=== PATIENT | female | born 1940 | race Caucasian/White ===

== ENCOUNTER 2016-09-23 14:58 | Observation (INO) | payer MEDICARE ==
[~2016-09-23] VITALS: Ht 165.1 cm; Wt 102.7 kg
[~2016-09-23 14:58] MED LIST: AMOXICILLIN 50500 MG PO; CHOLESTEROL MED; CYMBALTA60 MG PO; DIOVAN80 MG PO; HYCODAN 1.5 MG-1 TAB PO; SIMVASTATIN20 MG PO; TRAMADOL 50MG T50 MG PO
[2016-09-23 14:59] VITALS: BP 148/79
[2016-09-23 15:14] LABS: LYMPH # 2.4 K/mm3 (0.7-4.5); LYMPH % 45.9 % (10-50.0)
[2016-09-23 15:25] LABS: HEMOGLOBIN 10.3 g/dL (12.2-16.2)
[2016-09-23 15:32] LABS: BUN 27 mg/dL (7-18); GFR (ESTIMATED) 27 ML/MIN (59-)
[2016-09-23] MEDS ORDERED: DONEPEZIL HCL10 MG PO (15:49)
[2016-09-23] MEDS ORDERED: NAMENDA XR28 MG PO (15:50)
[2016-09-23] MEDS ORDERED: VALSARTAN80 MG PO (15:50)
[2016-09-23] MEDS ORDERED: PRAVACHOL20 MG PO (15:50)
[2016-09-23] MEDS ORDERED: CORICIDIN HBP C1 TAB PO (15:51)
--- NOTE | 2016-09-23 15:54 | Emergency Room Report ---
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 N Clinical Suspician of Infection? N Mental Status: 1 - Regular (Normal Baseline) Sepsis Risk:Low Sepsis Risk Have you (or family members/close friends) recently traveled outside the [place]? N If Yes, where/when: Have you had exposure to infectious disease within the past month? TB? Other? Specify: Source patient, RN notes reviewed, family, RN/MD Exam Limitations no limitations Comment This is a 76-year-old lady brought in by ambulance after sustaining a syncopal episode, just half an hour prior to arrival. She is here with her daughter. Patient appears to be a poor historian, as she is suffering from dementia. Per daughter, they both went out to eat at a local restaurant, and, as she was walking back to the car, daughter turned back to look for her mother ( the patient), and couldn't find her. She found her flat on the ground, unresponsive, and immediately called EMS. The patient's daugheter denies any previous similar episodes in the past, denies any recent travel or recent exposure to sick contacts, denies any neurological deficits. Patient is awake, and alert, oriented. ALLERGIES Coded Allergies: No Known Allergies (09/23/16) Home Medications Reported Medications DONEPEZIL HCL (Donepezil HCl) 10 MG PO BID #60 TAB MEMANTINE HCL (Namenda XR) 28 MG PO QHS #30 Pravastatin Sodium (Pravachol) 20 MG PO QHS #30 TAB Valsartan 80 MG PO QHS #30 TAB ACETAMINOPHEN/CHLORPHENIRAMINE (Coricidin Hbp Cold & Flu Tab) 1 TAB PO ONCE CYANOCOBALAMIN (VITAMIN B-12) (Vitamin B-12) 1 TAB PO DAILY OMEGA-3 FATTY ACIDS/FISH OIL (Fish Oil 1,000 MG Capsule) 1,000 MG PO QHS Cholecalciferol (Vitamin D3) (Vitamin D) 50,000 UNIT PO WEEKLY Aspirin (Adult Low Dose Aspirin EC) 81 MG PO DAILY History Medical History General Angina: No CA: No Hypertension? Yes Hyperlipidemia? Yes CHF? No COPD? No Asthma? No Hernia? Yes CVA? No Seizures? No Diabetes? No UTI? No Stones? No GB Disease: No Hepatitis? No Cataracts? No Glaucoma? No MRSA? No TB? No Cancer? No Immunization Hx DT/Tetanus UNKNOWN Surgical Hx Previous Surgery?Y BREAST LUMPECTOMY TOTAL L KNEE Family History Family Hx Diabetes Yes CAD Yes Hypertension Yes Hyperlipidemia Yes Cancer Yes TB No Social History Smoking Hx Smoker: Never Smoker Tobacco: No Type N/A Are you/the child exposed to second-hand smoke: No Alcohol Alcohol: No Review of Systems All Other Systems Reviewed and Negative Psychiatric/Neurological other (syncope) Physical Exam Vital Signs Vital Signs Date Time Temp Pulse Resp B/P Pulse O2 O2 Flow FiO2 Ox Delivery Rate 09/23 1710 80 / 1710 97.0 80 18 148/79 / 1710 98 ROOM AIR 09/23 1702 97.0 80 18 148/79 98 / 1459 97.0 80 18 148/79 98 General Appearance normal appearance, WD/WN, no apparent distress Eye Exam - bilateral eye normal exam, bilateral eye PERRL, bilateral eye EOMI Neck normal inspection, non-tender, supple, full range of motion Respiratory Status Yes: trachea midline, chest symmetrical, non tender chest. No: respiratory distress. Lung Sounds bilateral: normal breath sounds, lungs clear. 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 No Comment 16:12-case d/w Dr Andersen, covering for Dr Dela Cruz, covering for Dr Ku, advised of patient's condition, presentation, physical examination, labs/ electrocardiogram/radiology findings, ED course. Dr. Andersen agreeable with admission, requested an echocardiogram, to hold the ARB, gently hydrate the patient, follow serial cardiac enzymes. Care transferred Dr. Andersen at this time. I will write temporary bridge admit orders, per hospital policy. Upon patient's arrival to the floor, the unit nurse will contact Dr. Hargrove in order to obtain full inpatient admission orders. Results/Orders Laboratory Tests 09/23/16 1445: Phosphorus 4.3, Magnesium 1.6 09/23/16 1445: B-Natriuretic Peptide 32 09/23/16 1445: Sodium 139, Potassium 3.9, Chloride 104, Carbon Dioxide 23, BUN 27 H, Creatinine 1.8 H, Estimated Creat Clear 32 L, Estimated GFR (MDRD) 27 L, Glucose 148 H, Calcium 8.4 L, Total Bilirubin 0.2, AST 32, ALT 28, Alkaline Phosphatase 103, Creatine Kinase 421 H, CK-MB (CK-2) Rel Index 0.5, CK and CKMB Interp 2.2, Troponin I < 0.02, Total Protein 7.1, Albumin 3.0 L, Globulin 4.1 H, Albumin/Globulin Ratio 0.7 L, WBC 5.2, RBC 3.58 L, Hgb 10.3 L, Hct 32.4 L , MCV 90.6, RDW 13.8, Plt Count 219, MPV 6.7 L, Gran % 46.8, Gran # 2.4, Lymphocytes % 45.9, Monocytes % 4.7, Eosinophils % 2.1, Basophils % 0.6, Lymphocytes # 2.4, Monocytes # 0.3, Eosinophils # 0.1, Basophils # 0.0, PUBS MCHC 31.8, MCH 28.8 Current Medication Orders Sig/Jocelyn Start time Last Medication Dose Route Stop Time Status Admin Ceftriaxone Sodium 1 GM DAILY 09/24 0900 AC 09/24 Sodium Chloride 50 ML IV 0835 Donepezil HCl 10 MG QHS 09/23 2100 AC PO Pravastatin Sodium 20 MG QHS 09/23 2100 AC 09/23 PO 2130 Sodium Chloride 1,000 ML .Q4H 09/23 1715 DC 09/23 IV 09/23 2114 1807 Sodium Chloride 1,000 ML .[id number] 09/23 1715 AC 09/24 IV 0838 Sodium Chloride 1,000 ML .[id number] 09/23 1630 CAN IV Sodium Chloride 1,000 ML .[id number] 09/23 1615 DC 09/23 IV 09/23 1715 2131 Sodium Chloride 10 ML PRN PRN 09/23 1615 AC IV 09/24 1612 Ceftriaxone Sodium 1 GM ONCE ONE 09/23 1600 DC 09/23 Sodium Chloride 50 ML IV 09/23 1629 1557 Ceftriaxone Sodium 0 .STK-MED ONE 09/23 1552 DC IV Sodium Chloride 50 ML .STK-MED ONE 09/23 1552 DC IV Sodium Chloride 10 ML PRN PRN 09/23 1515 AC IV 09/24 1505 Orders Procedure Date/time Status CBC WITH AUTO DIFF 09/24 0600 Complete BASIC METABOLIC PROFILE 09/24 0600 Complete CARDIAC ENZYMES 09/24 0030 Complete ARTERIAL CAROTID 09/24 UNK Complete [id number] FAT/LO CHO/JADA 09/23 D Complete CARDIAC ENZYMES 09/23 1800 Complete ECHO ADULT 09/23 1613 Active ORTHOSTATIC B/P 09/23 1612 Active Decision to admit 09/23 1554 Active URINALYSIS/COMPLETE 09/23 1551 Active PHOSPHORUS 09/23 1550 Complete MAGNESIUM 09/23 1550 Complete BRAIN NATRIURETIC PEPTIDE 09/[address] HEAD REQ 09/23 1549 Complete ELECTROCARDIOGRAM REQUEST 09/23 1509 Active KNEE-3 VIEWS-LT 09/23 1506 Active IV SALINE LOCK 09/23 1506 Active CBC WITH AUTO DIFF 09/23 1506 Complete CARDIAC ENZYMES 09/23 1506 Complete CHEM 12 PROFILE 09/23 1506 Complete ADMIT PATIENT 09/23 UNK Active 12 LEAD EKG-ROSAMARIA (INITIAL) 09/23 UNK Active PULSE OXIMETRY REQUEST 09/23 UNK Active VITAL SIGNS 09/23 UNK Active 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 of ischemic chgs, no ectopy, normal QRS, normal CO, no EKG for comparison, non-spec. ST/Twave chgs, ST elevation, ST depression, LBBB, RBBB, ectopy, abnormal Q waves XRAY/CT/US XRAY/CT/US 1 XRAY chest XR interpretation by reviewed by me, discussed w/radiologist Xray Results no infiltrates, normal heart size, normal lung inflation lucy XRAY/CT/US 2 XRAY pelvis-negative left knee-negative XRAY/CT/US [address] interpretation by discussed w/radiologist Time results known: 1616 CT Results normal/NAD, no fracture seen, atrophy, no ICH Departure Departure Time of Disposition 1552 Disposition Still a Patient Clinical Impression Primary Impression: Syncope Qualifiers: Syncope type: unspecified Qualified Code: R55 - Syncope and collapse Secondary Impressions: Acute kidney injury Anemia Qualifiers: Anemia type: unspecified type Qualified Code: D64.9 - Anemia, unspecified Condition STABLE ED Critical Care Critical Care No at 1032
--- NOTE | 2016-09-23 15:54 | Emergency Room Report ---
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 N Clinical Suspician of Infection? N Mental Status: 1 - Regular (Normal Baseline) Sepsis Risk:Low Sepsis Risk Have you (or family members/close friends) recently traveled outside the [place]? N If Yes, where/when: Have you had exposure to infectious disease within the past month? TB? Other? Specify: Source patient, RN notes reviewed, family, RN/MD Exam Limitations no limitations Comment This is a 76-year-old lady brought in by ambulance after sustaining a syncopal episode, just half an hour prior to arrival. She is here with her daughter. Patient appears to be a poor historian, as she is suffering from dementia. Per daughter, they both went out to eat at a local restaurant, and, as she was walking back to the car, daughter turned back to look for her mother ( the patient), and couldn't find her. She found her flat on the ground, unresponsive, and immediately called EMS. The patient's daugheter denies any previous similar episodes in the past, denies any recent travel or recent exposure to sick contacts, denies any neurological deficits. Patient is awake, and alert, oriented. ALLERGIES Coded Allergies: No Known Allergies (09/23/16) Home Medications Reported Medications DONEPEZIL HCL (Donepezil HCl) 10 MG PO BID #60 TAB MEMANTINE HCL (Namenda XR) 28 MG PO QHS #30 Pravastatin Sodium (Pravachol) 20 MG PO QHS #30 TAB Valsartan 80 MG PO QHS #30 TAB ACETAMINOPHEN/CHLORPHENIRAMINE (Coricidin Hbp Cold & Flu Tab) 1 TAB PO ONCE CYANOCOBALAMIN (VITAMIN B-12) (Vitamin B-12) 1 TAB PO DAILY OMEGA-3 FATTY ACIDS/FISH OIL (Fish Oil 1,000 MG Capsule) 1,000 MG PO QHS Cholecalciferol (Vitamin D3) (Vitamin D) 50,000 UNIT PO WEEKLY Aspirin (Adult Low Dose Aspirin EC) 81 MG PO DAILY History Medical History General Angina: No NV: No Hypertension? Yes Hyperlipidemia? Yes CHF? No COPD? No Asthma? No Hernia? Yes CVA? No Seizures? No Diabetes? No UTI? No Stones? No GB Disease: No Hepatitis? No Cataracts? No Glaucoma? No MRSA? No TB? No Cancer? No Immunization Hx DT/Tetanus UNKNOWN Surgical Hx Previous Surgery?Y BREAST LUMPECTOMY TOTAL L KNEE Family History Family Hx Diabetes Yes CAD Yes Hypertension Yes Hyperlipidemia Yes Cancer Yes TB No Social History Smoking Hx Smoker: Never Smoker Tobacco: No Type N/A Are you/the child exposed to second-hand smoke: No Alcohol Alcohol: No Review of Systems All Other Systems Reviewed and Negative Psychiatric/Neurological other (syncope) Physical Exam Vital Signs Vital Signs Date Time Temp Pulse Resp B/P Pulse O2 O2 Flow FiO2 Ox Delivery Rate 09/23 1710 80 / 1710 97.0 80 18 148/79 / 1710 98 ROOM AIR 09/23 1702 97.0 80 18 148/79 98 / 1459 97.0 80 18 148/79 98 General Appearance normal appearance, WD/WN, no apparent distress Eye Exam - bilateral eye normal exam, bilateral eye PERRL, bilateral eye EOMI Neck normal inspection, non-tender, supple, full range of motion Respiratory Status Yes: trachea midline, chest symmetrical, non tender chest. No: respiratory distress. Lung Sounds bilateral: normal breath sounds, lungs clear. 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 No Comment 16:12-case d/w Dr Andersen, covering for Dr Dela Cruz, covering for Dr Ku, advised of patient's condition, presentation, physical examination, labs/ electrocardiogram/radiology findings, ED course. Dr. Andersen agreeable with admission, requested an echocardiogram, to hold the ARB, gently hydrate the patient, follow serial cardiac enzymes. Care transferred Dr. Andersen at this time. I will write temporary bridge admit orders, per hospital policy. Upon patient's arrival to the floor, the unit nurse will contact Dr. Hargrove in order to obtain full inpatient admission orders. Results/Orders Laboratory Tests 09/23/16 1445: Phosphorus 4.3, Magnesium 1.6 09/23/16 1445: B-Natriuretic Peptide 32 09/23/16 1445: Sodium 139, Potassium 3.9, Chloride 104, Carbon Dioxide 23, BUN 27 H, Creatinine 1.8 H, Estimated Creat Clear 32 L, Estimated GFR (MDRD) 27 L, Glucose 148 H, Calcium 8.4 L, Total Bilirubin 0.2, AST 32, ALT 28, Alkaline Phosphatase 103, Creatine Kinase 421 H, CK-MB (CK-2) Rel Index 0.5, CK and CKMB Interp 2.2, Troponin I < 0.02, Total Protein 7.1, Albumin 3.0 L, Globulin 4.1 H, Albumin/Globulin Ratio 0.7 L, WBC 5.2, RBC 3.58 L, Hgb 10.3 L, Hct 32.4 L , MCV 90.6, RDW 13.8, Plt Count 219, MPV 6.7 L, Gran % 46.8, Gran # 2.4, Lymphocytes % 45.9, Monocytes % 4.7, Eosinophils % 2.1, Basophils % 0.6, Lymphocytes # 2.4, Monocytes # 0.3, Eosinophils # 0.1, Basophils # 0.0, PUBS MCHC 31.8, MCH 28.8 Current Medication Orders Sig/Jocelyn Start time Last Medication Dose Route Stop Time Status Admin Ceftriaxone Sodium 1 GM DAILY 09/24 0900 AC 09/24 Sodium Chloride 50 ML IV 0835 Donepezil HCl 10 MG QHS 09/23 2100 AC PO Pravastatin Sodium 20 MG QHS 09/23 2100 AC 09/23 PO 2130 Sodium Chloride 1,000 ML .Q4H 09/23 1715 DC 09/23 IV 09/23 2114 1807 Sodium Chloride 1,000 ML .[id number] 09/23 1715 AC 09/24 IV 0838 Sodium Chloride 1,000 ML .[id number] 09/23 1630 CAN IV Sodium Chloride 1,000 ML .Q1H1M 09/23 1615 DC 09/23 IV 09/23 1715 2131 Sodium Chloride 10 ML PRN PRN 09/23 1615 AC IV 09/24 1612 Ceftriaxone Sodium 1 GM ONCE ONE 09/23 1600 DC 09/23 Sodium Chloride 50 ML IV 09/23 1629 1557 Ceftriaxone Sodium 0 .STK-MED ONE 09/23 1552 DC IV Sodium Chloride 50 ML .STK-MED ONE 09/23 1552 DC IV Sodium Chloride 10 ML PRN PRN 09/23 1515 AC IV 09/24 1505 Orders Procedure Date/time Status CBC WITH AUTO DIFF 09/24 0600 Complete BASIC METABOLIC PROFILE 09/24 0600 Complete CARDIAC ENZYMES 09/24 0030 Complete ARTERIAL CAROTID 09/24 UNK Complete [id number] FAT/LO CHO/JADA 09/23 D Complete CARDIAC ENZYMES 09/23 1800 Complete ECHO ADULT 09/23 1613 Active ORTHOSTATIC B/P 09/23 1612 Active Decision to admit 09/23 1554 Active URINALYSIS/COMPLETE 09/23 1551 Active PHOSPHORUS 09/23 1550 Complete MAGNESIUM 09/23 1550 Complete BRAIN NATRIURETIC PEPTIDE 09/[address] HEAD REQ 09/23 1549 Complete ELECTROCARDIOGRAM REQUEST 09/23 1509 Active KNEE-3 VIEWS-LT 09/23 1506 Active IV SALINE LOCK 09/23 1506 Active CBC WITH AUTO DIFF 09/23 1506 Complete CARDIAC ENZYMES 09/23 1506 Complete CHEM 12 PROFILE 09/23 1506 Complete ADMIT PATIENT 09/23 UNK Active 12 LEAD EKG-ROSAMARIA (INITIAL) 09/23 UNK Active PULSE OXIMETRY REQUEST 09/23 UNK Active VITAL SIGNS 09/23 UNK Active SCHOOL COMMISSIONER 09/23 UNK Active POM NURSE KARLEY HOSE ORDER 09/23 UNK Active CODE STATUS 09/23 UNK Active PATIENT ACTIVITY ORDER 09/23 UNK Active Neuro Status, Assess 09/23 UNK Active CM/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 of ischemic chgs, no ectopy, normal QRS, normal AK, no EKG for comparison, non-spec. ST/Twave chgs, ST elevation, ST depression, LBBB, RBBB, ectopy, abnormal Q waves XRAY/CT/US XRAY/CT/US 1 XRAY chest XR interpretation by reviewed by me, discussed w/radiologist Xray Results no infiltrates, normal heart size, normal lung inflation lucy XRAY/CT/US 2 XRAY pelvis-negative left knee-negative XRAY/CT/US [address] interpretation by discussed w/radiologist Time results known: 1616 CT Results normal/NAD, no fracture seen, atrophy, no ICH Departure Departure Time of Disposition 1552 Disposition Still a Patient Clinical Impression Primary Impression: Syncope Qualifiers: Syncope type: unspecified Qualified Code: R55 - Syncope and collapse Secondary Impressions: Acute kidney injury Anemia Qualifiers: Anemia type: unspecified type Qualified Code: D64.9 - Anemia, unspecified Condition STABLE ED Critical Care Critical Care No at 1032
--- NOTE | 2016-09-23 16:22 | RADIOLOGY REPORT PS360 ---
CT HEAD W/O CONTRAST COMPARISON: None HISTORY: Patient fell, possible loss of consciousness TECHNIQUE: Multiple axial scans obtained from base skull to the vertex and were performed without IV contrast. FINDINGS: There is prominent inflammatory changes of the ethmoid sinuses and is a small amount of fluid in the visualized portions of the maxillary sinuses and there is mucoperiosteal thickening and/or small amount of fluid in the sphenoid sinus. The frontal sinuses somewhat small but clear. The basilar cisterns are prominent. Ventricular system is normal for age. There is no bleed and there are no extra-axial fluid collections. There are mild periventricular hypodensities consistent with chronic ischemia white matter changes. The sylvian fissures and cortical sulci are mildly prominent. There is moderate arteriosclerotic calcification of the vertebral arteries bilaterally. Bony calvarium appears intact. IMPRESSION: 1. Prominent ethmoid sinusitis likely acute and chronic with mild inflammatory changes of the maxillary and sphenoid sinus as well there were 2 findings of age-appropriate cortical atrophy 2. Findings of mild age-appropriate cortical atrophy and mild chronic ischemic white matter changes, no acute intracranial pathology noted
--- NOTE | 2016-09-23 16:30 | PHARMACY CLINIC NOTE ---
Patient Demographics Patient Demographics Admission date: 09/23/16 Date: 09/23/16 Time: 162 Allergies Coded Allergies: No Known Allergies (09/23/16) HEIGHT- FT: 5 IN: 6.00 K.112 VTE General Information Disclaimer The following section includes nursing documentation that has been pulled in for pharmacy review. VTE prophylaxis [id number] VTE prophylaxis ordered? Yes Type of prophylaxis/treatment: KARLEY at 3632
--- NOTE | 2016-09-23 16:45 | RADIOLOGY REPORT PS360 ---
CHEST-PORTABLE Ordering physician: David Arellano MD Age: 76 years Female INDICATION: chest symptomsFELL AT HOME PROCEDURE: CHEST-PORTABLE FINDINGS: PA and lateral chest 03/20/2012 Less optimal inspiration on today's portable study but nothing definitely acute. No pneumothorax. No pleural effusion. There is mild elevation right hemidiaphragm which is similar to previous studies only slightly more pronounced today. Chest wall not optimally viewed but no rib fracture or chest wall abnormality evident Lungs well expanded and clear with nothing definitely acute. . Mild chronic changes Heart normal size. Normal pulmonary vascularity. Hilar and mediastinal structures appear satisfactory. . IMPRESSION ----- Nothing definite acute at chest Elevation right hemidiaphragm.
--- NOTE | 2016-09-23 16:47 | RADIOLOGY REPORT PS360 ---
PELVIS AP ONLY Ordering Physician: David Arellano MD Patient Age: 76 years: Female HISTORY: FELL AT HOMEAP pelvis. TECHNIQUE: AP pelvis radiograph portable FINDINGS Osseous pelvis is intact. No fracture. Hip joint spaces well-maintained. Decreased resolution on this portable exam but no good evidence of acute pelvic fracture. Specifically the sacrum and SI joints osseous pelvis appear intact with suggestion mild demineralization throughout. No previous relevant studies IMPRESSION: Osseous pelvis intact with no fracture evident
[2016-09-23 17:10] VITALS: BP 148/79
[2016-09-23] MEDS ORDERED: VITAMIN B121 TA1 PO (17:49)
[2016-09-23] MEDS ORDERED: FISH OIL1000 MG PO (17:49)
[2016-09-23] MEDS ORDERED: VITAMIN D50000 UNIT PO (17:50)
[2016-09-23 17:53] VITALS: BP 190/82
--- NOTE | 2016-09-23 17:57 | HISTORY AND PHYSICAL REPORT ---
Demographics: Admit date: 09/23/16 Chief complaint: SYNCOPAL EVENT, FALL AT HOME PRIMARY DIAGNOSIS: SYNCOPE Allergies: Coded Allergies: No Known Allergies (09/23/16) History of present illness: History of present illness: 76 yr old female with history of dementia, hyperlipidemia and hypertension presented to the ED after suffering a syncopal event at her home. Daughter is present at time of exam and gives history due to patient's poor recall. Reports they had been out to lunch and returned home, her mother got out of the car and was walking away from the car while daughter was feeding her cat - she called her mother's name and got no response and turned to see her unresponsive in front of the car. After a brief moment, her eyes opened spontaneously, appeared very pale but slowly regained some level of alertness and was awake when EMS arrived. In ED found to have mild elevation of creatinine, mild elevation of CPK and was admitted for observation. On exam she reports left lower leg pain and cramping around her ankle. Typically followed by Dr Cordoba for primary care. Last visit about 3 weeks ago and labs were done for complaint of leg muscle pain/cramping in her thighs. Was started on fish oil and vitamin D replacement at that time. No recent antibiotics. + cough for the past 3 days and had a dose of Coricidin HBP at lunch today, prior to syncopal event. Followed by neurology at [facility] for progressive dementia that started about 3 years ago following the of her . She lives alone but her son lives next door and has good family support. Past medical history: Family HX Diabetes Yes CAD No Hypertension No Hyperlipidemia No Cancer No TB No Immunization HX DT/Tetanus UNKNOWN Pneumonia Never Had TB Test in last year No General CAD? No Angina: No NV: No Hypertension? Yes Hyperlipidemia? Yes CHF? No DVT? No PE? No COPD? No Asthma? No Anemia? Yes GERD? No Gastric ulcers? No GI Bleed? No Hernia? Yes Thyroid Problems? No Hypothyroidism? No CVA? No Seizures? No Diabetes? No Renal Insuffiency? Yes (creatinine 1.5 on most recent) UTI? No Stones? No BPH? No GB Disease: No Nephritic Syndrome? No Asplenia? No Hepatitis? No Sickle Cell Disease? No Arthritis? Yes Migraines? Yes Cataracts? No Glaucoma? No MRSA? No HIV? No TB? No Anxiety? No Depression? Yes Cancer? No More? Yes Additional hx: DIVERTICULITIS DEMENTIA COMPLICATED MIGRAINE Past Surgical HX Previous Surgery?Y LEFT TOTAL KNEE REPLACEMENT BREAST LUMPECTOMY Current home meds: Reported Medications DONEPEZIL HCL (Donepezil HCl) 10 MG PO QHS #60 MEMANTINE HCL (Namenda XR) 28 MG PO QHS #30 Pravastatin Sodium (Pravachol) 20 MG PO QHS #30 Valsartan 80 MG PO QHS #30 Cyanocobalamin (Vitamin B-12) (Vitamin B12) 2,500 MCG PO DAILY OMEGA-3 FATTY ACIDS/FISH OIL (Fish Oil 1,000 MG Capsule) 1,000 MG PO DAILY CHOLECALCIFEROL (VITAMIN D3) (Vitamin D) 1 TAB PO WEEKLY ACETAMINOPHEN/CHLORPHENIRAMINE (Coricidin Hbp Cold & Flu Tab) 1 TAB PO ONCE Social Hx: Smoking HX Tobacco No Type N/A Are you/the child exposed to second-hand smoke: No Alcohol Alcohol: No Hx of Drug Use Drug Use? No Patien't marital status is Patient's support system is excellent Review of systems: Constitutional No: no symptoms reported. Eyes No: no symptoms reported. Ears, Nose, Mouth, Throat nose congestion Respiratory cough. No: shortness of breath. Cardiovascular No chest pain, No edema, syncope Gastrointestinal/Abdominal No no symptoms reported Genitourinary No: no symptoms reported. Musculoskeletal see HPI, joint pain, muscle pain. Skin No: no symptoms reported. Neurological No: headache, tremors, seizure disorder. Psychiatric No: no symptoms reported. Exam: Lab data for last 24 hours: Laboratory Tests 09/23/16 1445: Phosphorus 4.3, Magnesium 1.6 09/23/16 1445: B-Natriuretic Peptide 32 09/23/16 1445: Sodium 139, Potassium 3.9, Chloride 104, Carbon Dioxide 23, BUN 27 H, Creatinine 1.8 H, Estimated Creat Clear 32 L, Estimated GFR (MDRD) 27 L, Glucose 148 H, Calcium 8.4 L, Total Bilirubin 0.2, AST 32, ALT 28, Alkaline Phosphatase 103, Creatine Kinase 421 H, CK-MB (CK-2) Rel Index 0.5, CK and CKMB Interp 2.2, Troponin I < 0.02, Total Protein 7.1, Albumin 3.0 L, Globulin 4.1 H, Albumin/Globulin Ratio 0.7 L, WBC 5.2, RBC 3.58 L, Hgb 10.3 L, Hct 32.4 L , MCV 90.6, RDW 13.8, Plt Count 219, MPV 6.7 L, Gran % 46.8, Gran # 2.4, Lymphocytes % 45.9, Monocytes % 4.7, Eosinophils % 2.1, Basophils % 0.6, Lymphocytes # 2.4, Monocytes # 0.3, Eosinophils # 0.1, Basophils # 0.0, PUBS MCHC 31.8, MCH 28.8 Admission vital signs: 1ST Vital Signs Result Date Time Pulse Ox 98 09/23 1459 B/P 148/79 09/23 1459 Temp 97.0 09/23 1459 Pulse 80 09/23 1459 Resp 18 09/23 1459 O2 Delivery ROOM AIR 09/23 1710 Additional information: Pleasant female, resting in bed, alert and oriented to person. Poor recall. Pupils are 1mm bilat, tongue midline, face symmetric and able to move all extremities. Gait not evaluated. Heart rate is regular on auscultation. Lungs with diffuse rhonchi and some expiratory wheezing. Abdomen obese, soft, NT/ND, BS present. No edema, scar over the left knee, moves all extremities but develops cramping pain in the left foot during exam. Affect is flat. Skin without acute rashes, pale. Plan: Problem List 1. Syncope Assessment/Plan echo and carotid results pending. CT head negative for acute events, does note acute on chronic ethmoid sinusitis. 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 Acute kidney injury Assessment/Plan baseline 1.5 on most recent labs. Hold ARB, gentle hydration and repeat in AM 3. Anemia Assessment/Plan stable compared to outpatient labs 3 weeks ago. B12 was normal at that time. Will obtain iron studies. 4. Acute ethmoidal sinusitis Assessment/Plan continue ceftriaxone initiated in the ED. Obtain blood and sputum cultures 5. Wheezing Assessment/Plan start albuterol nebulizer therapy. No history of smoking, asthma or COPD. Likely related to acute viral process Plan: pantoprazole for GI prophylaxis, KARLEY hose for DVT prophylaxis Assessment/Plan start albuterol nebulizer therapy. No history of smoking, asthma or COPD. Likely related to acute viral process Plan: see above
[2016-09-23 21:16] VITALS: BP 166/77
[2016-09-24] VITALS (8 sets, daily range): BP systolic 145–189; BP diastolic 70–98
[2016-09-24 07:44] LABS: HEMOGLOBIN 9.4 g/dL (12.2-16.2); LYMPH # 2.2 K/mm3 (0.7-4.5); LYMPH % 45.3 % (10-50.0)
--- NOTE | 2016-09-24 08:19 | ACUTE CARE PROGRESS NOTE (QUA) ---
Progress Notes Subjective Date 09/24/16 Time 0814 Note No events overnight. Rested "decent". Leg cramps are better this morning. Continues with congested cough. Alert, oriented to person. Poor recall. Heart with RRR, wheezing and rhonchi bilaterally. Abdomen soft, BS present, NT/ND. No edema, moves all extremities. Patient/family reports: feeling better, cough Nursing reports: no complaints Objective Findings Last VS-Temp:99.0 B/P:153/84 Pulse:77 Resp:20 SaO2:94 ROOM AIR Last weight lbs:226 oz:8 K.740 Method:Bed Scales Reviewed: medications, vital signs, lab results, radiology report Assessment/Plan Problem List 1. Syncope Assessment/Plan: echo and carotid dopplers pending. Would recommend CTA given her new report of arrhythmia and her relatively new chest symptoms. Qualifiers: Syncope type: unspecified Qualified Code: R55 - Syncope and collapse 2. Acute kidney injury 3. Anemia Assessment/Plan: iron studies pending. Recent B12 level normal. Colonoscopy in the past but daughter unsure of date Qualifiers: Anemia type: unspecified type Qualified Code: D64.9 - Anemia, unspecified 4. Acute ethmoidal sinusitis Assessment/Plan: Continue ceftriaxone 5. Wheezing Assessment/Plan: Continue albuterol Patient condition Stable Plan: order additional tests This inpt stay is expected to cross 2 MNs from start of care No at 0818
[2016-09-24] MEDS ORDERED: ADULT LOW DOSE81 MG PO (08:29)
--- NOTE | 2016-09-24 08:38 | RADIOLOGY REPORT PS360 ---
ANKLE-LT-3 VIEWS Ordering Physician: Rei Ku MD Patient Age: 76 years: Female HISTORY: FALL, PAINpain left ankle. Fall TECHNIQUE: 3 views left ankle FINDINGS No fracture nor dislocation. Ankle mortise intact. Only scant if any soft tissue swelling laterally below the tip of lateral malleolus IMPRESSION: No fracture nor dislocation
--- NOTE | 2016-09-24 08:50 | CARDIOVASCULAR REPORT ---
"Cerebrovascular Exam Indications: 780.2 Syncope and collapse. IMPRESSIONS 1. The bilateral vertebral arteries are patent with normal antegrade flow. 2. Study suggests 20-49%(lower end of scale)stenosis involving the right internal carotid artery and the left internal carotid artery. History: Risk factors: Hypertension. Hyperlipidemia. Carotid duplex study. Complete study and Doppler flow study including spectral analysis, color and vegas scale imaging. Height: Height: 165.1cm. Height: 65in. Weight: Weight: 102.5kg. Weight: 225.5lb. Body mass index: BMI: 37.6kg/m^2. Body surface area: BSA: 2.22m^2. Location: Bedside. Patient status: Inpatient. Tables: Arterial flow: + +--------+--------+ |Location |V sys |V ed | + +--------+--------+ |Right CCA - proximal|108cm/s |22cm/s | + +--------+--------+ |Right CCA - distal |120cm/s |28.3cm/s| + +--------+--------+ |Right ECA |152cm/s |--------| + +--------+--------+ |Right ICA - proximal|84.1cm/s|26.7cm/s| + +--------+--------+ |Right ICA - mid |106cm/s |31.4cm/s| + +--------+--------+ |Right ICA - distal |147cm/s |33.8cm/s| + +--------+--------+ |Right vertebral |82.5cm/s|--------| + +--------+--------+ |Left CCA - proximal |97.4cm/s|17.3cm/s| + +--------+--------+ |Left CCA - distal |104cm/s |20.4cm/s| + +--------+--------+ |Left ECA |165cm/s |--------| + +--------+--------+ |Left ICA - proximal |118cm/s |23.6cm/s| + +--------+--------+ |Left ICA - mid |184cm/s |33.4cm/s| + +--------+--------+ |Left ICA - distal |98.2cm/s|22.6cm/s| + +--------+--------+ |Left vertebral |50.1cm/s|--------| + +--------+--------+ Velocity ratios: + + + + + + | |Right, V sys|Right, V ed|Left, V sys|Left, V ed| + + + + + + |Max ICA/dist CCA|1.23 |1.19 |1.77 |1.64 | + + + + + + (Report amended ) Electronically signed by: Angel Meneses [id number]"
--- NOTE | 2016-09-24 10:16 | CARDIOVASCULAR REPORT ---
"Venous Exam Indications: 729.5 Pain in limb. IMPRESSIONS 1. There is no evidence of significant Reflux. 2. No evidence of deep or superficial vein thrombosis involving the right lower extremity 3. No evidence of deep or superficial vein thrombosis involving the left lower extremity History: Risk factors: Hypertension. Complete lower extremity venous duplex evaluation. Doppler flow study including spectral analysis, color and vegas scale imaging. Location: Vascular laboratory. Patient status: Inpatient. Tables: Venous flow and imaging: + +-------+ + |Location |Overall|Flow properties | + +-------+ + |Right common femoral |Patent |Normal phasicity; spontaneous; | | | |normal augmentation; compressible| + +-------+ + |Right saphenofemoral junction|Patent |Compressible | + +-------+ + |Right profunda femoral |Patent |Compressible | + +-------+ + |Right femoral |Patent |Normal phasicity; spontaneous; | | | |normal augmentation; | | | |compressible; no reflux | + +-------+ + |Right greater saphenous |Patent |Normal phasicity; spontaneous; | | | |normal augmentation; compressible| + +-------+ + |Right popliteal |Patent |Normal phasicity; spontaneous; | | | |normal augmentation; compressible| + +-------+ + |Right posterior tibial |Patent |Compressible | + +-------+ + |Right peroneal |Patent |Compressible | + +-------+ + |Right gastrocnemius |Patent |Compressible | + +-------+ + |Right soleal |Patent |Compressible | + +-------+ + |Left common femoral |Patent |Normal phasicity; spontaneous; | | | |normal augmentation; compressible| + +-------+ + |Left saphenofemoral junction |Patent |Compressible | + +-------+ + |Left profunda femoral |Patent |Compressible | + +-------+ + |Left femoral |Patent |Normal phasicity; spontaneous; | | | |normal augmentation; compressible| + +-------+ + |Left greater saphenous |Patent |Normal phasicity; spontaneous; | | | |normal augmentation; compressible| + +-------+ + |Left popliteal |Patent |Normal phasicity; spontaneous; | | | |normal augmentation; compressible| + +-------+ + |Left posterior tibial |Patent |Compressible | + +-------+ + |Left peroneal |Patent |Compressible | + +-------+ + |Left gastrocnemius |Patent |Compressible | + +-------+ + |Left soleal |Patent |Compressible | + +-------+ + (Report amended ) Electronically signed by: Angel Meneses [id number]"
--- NOTE | 2016-09-24 11:08 | RADIOLOGY REPORT PS360 ---
CT CHEST W/O CONTRAST Ordering Physician: Rei Ku MD Patient Age: 76 years: Female HISTORY: SYNCOPE,?pneumoniashort of breath. Recent Leg pain.. TECHNIQUE: Helical CT scanning performed the chest with no IV contrast. Due to renal insufficiency. GFR 27 FINDINGS : LUNGS. mild thickening of central airways most evident at the infrahilar region bilateral, right greater than left... Suspect bronchitis or possibly chronic bronchitis. This is most evident at the medial right base with there is some subtle hazy appearance about the airways. Cannot exclude some extremely subtle early bronchopneumonia but more likely viewing mainly bronchitis and chronic changes. RIGHT Chest: Note focal increased lung density at the medial aspect of posterior right chest, this is seen overlying the very large marginal osteophyte thoracic spine. This impinges upon the lung & resulting in and focal scarring/fibrosis along with atelectasis.. Doubt infiltrate or lesion here given its overall appearance on all 3 projections. Subtle groundglass opacity in character character of lungs seen at the right middle lobe centrally as well as right upper lobe just above the minor fissure. Nonspecific. More likely chronic changes although difficult to exclude a very subtle infiltrate LEFT Chest:. Minimal ground glass opacity is associated with focal area of pleural thickening at the periphery of the lingula more likely reflection of scarring chronic changes. There is also somewhat nodular density at the left CP angle which I favor also due to scarring seen on coronal image 45-44 MEDIASTINUM: mild cardiomegaly. Only a few small scattered nodes in mediastinum. No significant mediastinal nor hilar adenopathy. The slight generous caliber pulmonary artery on right mathew reflect some underlying pulmonary hypertension features but is nonspecific. Osseous. No significant osseous lesions prominent costochondral calcification lower ribs mild degenerative changes T-spine but no compression fracture or lesion. Upper abdomen. Liver: 2.7 cm benign-appearing cyst left lobe. . Adrenals included, & unremarkable. Spleen normal size. Upper normal thickness at distal esophagus IMPRESSION: 1. Mild thickening of airways most evident at infrahilar regions. - Suggestive of bronchitis/Central airway inflammation 2. Would note subtle groundglass opacity RML & RUL. These are minimal nonspecific & more likely chronic changes and/or atelectasis. ( Difficult to totally exclude a subtle inflammatory process, but less likely ) 3. More likely chronic areas of scarring bilaterally also noted: ...Densities at Periphery of lingula just above left hemidiaphragm, -most likely related to pleural & parenchymal scarring. ... Large osteophyte lower right chest w/ associated overlying area lung density, most likely due to to focal scarring & atelectasis.. These latter features may benefit from follow-up 4. Cardiomegaly but no evidence of CHF.
--- NOTE | 2016-09-24 20:10 | RADIOLOGY REPORT PS360 ---
KNEE-3 VIEWS-LT Ordering Physician: David Arellano MD Patient Age: 76 years: Female HISTORY: FELL AT HOMEleft knee pain TECHNIQUE: 3 views portable left knee: including crosstable lateral COMPARISON September 2008 3 view left knee FINDINGS No acute fracture or findings. Left TKA. Components appear to be well-seated in satisfactory position with no fracture or loosening. No acute findings a no prominent change since 2008. Only question slight additional tibial valgus on this portable image Again note the Generous bone cement extending inferiorly from the long tibial peg here at the proximal tibia. Note stable superior marginal osteophyte off the superior margin of patella. Wispy calcification just superior to this I believe reflects some dystrophic calcification near suprapatella bursa/slightly more evident than on 2009.. Most likely dystrophic postsurgical calcification. Difficult to totally exclude some loose body material within the suprapatella bursa, but I believe this less likely.. Especially with No associated joint effusion IMPRESSION: Left TKA intact. No fracture nor loosening. No acute findings. No joint effusion No significant appearing change since September 2008 Only note Wispy calcification projected over suprapatellar bursa on lateral view slightly more evident today,by far more likely reflects post surgical/dystrophic calcification in this region..( If Pain persists this may warrant follow-up to exclude unlikely loose body material)
[2016-09-25 00:22] VITALS: BP 156/93
[2016-09-25 04:29] VITALS: BP 199/78
[2016-09-25 06:55] LABS: HEMOGLOBIN 9.5 g/dL (12.2-16.2); LYMPH # 1.2 K/mm3 (0.7-4.5)
[2016-09-25 08:10] VITALS: BP 162/85
--- NOTE | 2016-09-25 08:13 | ACUTE CARE PROGRESS NOTE (QUA) ---
Progress Notes Subjective Date 09/25/16 Time 0810 Note No events overnight. Feels well this morning, no pain in her legs this morning. No telemetry events since admission. Other diagnostics unremarkable with respect to etiology of possible syncopal event. She is up and alert, pleasant, oriented to person and place this morning. Heart with RRR, lungs with expiratory wheezing bilaterally. Abdomen soft, NT/ND, BS present. No edema. Patient/family reports: feeling better Nursing reports: no complaints Objective Findings Last VS-Temp:97.5 B/P:199/78 Pulse:65 Resp:18 SaO2:95 ROOM AIR Last weight lbs:226 oz:8 K.740 Method:Bed Scales Reviewed: medications, vital signs, lab results Assessment/Plan Problem List 1. Syncope Assessment/Plan: Plan DC home today with treatment for bronchitis and sinusitis orally. FU with PCP in 2 weeks. Antihypertensives changed to carvedilol and ARB discontinued in case this contributed to her fall/syncopal event Qualifiers: Syncope type: unspecified Qualified Code: R55 - Syncope and collapse 2. Acute kidney injury 3. Anemia Qualifiers: Anemia type: unspecified type Qualified Code: D64.9 - Anemia, unspecified 4. Acute ethmoidal sinusitis 5. Wheezing 6. HTN (hypertension) 7. Bronchitis, acute Patient condition Stable Plan: initiate discharge plan This inpt stay is expected to cross 2 MNs from start of care No
[2016-09-25 08:42] LABS: Iron 20 ug/dL (27-139); Iron Saturation 6 % (15-55); UIBC 328 ug/dL (118-369)
--- NOTE | 2016-09-25 09:20 | RADIOLOGY REPORT PS360 ---
PROCEDURE: 2-D M-mode and color Doppler study INDICATIONS FOR THE TEST: Chest pain COPD Heart Murmur+ Tobacco Smoking Palpitations+ Fatigue+ Syncope+ Edema Hypertension+Diabetes Mellitus Rheumatic Fever SOB+FAEY+Obesity Hyperlipidemia+ Family History HD Additional History Possible TIA 15 years ago, hx of AFIB PATIENT INFORMATION HEIGHT: 66 WEIGHT: 170 GENDER: Female B/P: 145/84 2-D/M-MODE INTERPRETATION: 2-D MEASUREMENTS OBSERVED VALUES IN CMS Right Ventricular Dimension (RVDd) 2.3 Interventricular Septum (Thickness)(IVsd) 1.6 Left Ventricular Internal Dimensions(LVIDd) 2.2 Left Ventricular Posterior Wall (Thickness)(LVPWd) 1.4 Aortic Root 2.0 Aortic Cusp Separation 2.0 Left Atrial Dimensions (LAD) 3.2 2D 1. Left atrium is qualitatively mildly enlarged, left ventricle is normal size, there is mild concentric left ventricular hypertrophy, there is hyperdynamic left ventricular systolic function visually estimated ejection fraction of over 65%. There is no obvious regional wall motion abnormality. 2. The right atrium and right ventricle are normal size and contractility. 3. The aortic valve is thickened and calcified leaflet continue to display mobility. 4. The mitral valve apparatus is not well visualized, possibility of systolic anterior motion of the mitral valve leaflets cannot be excluded. 5. The tricuspid valve is structurally normal. 6. The pulmonic valve is not well visualized. 7. No significant pericardial effusion noted. DOPPLER INTERROGATION: 1. There is increased late peaking velocities seen in the left ventricular outflow tract raising the concern is for presence of dynamic obstruction, this is not well interrogated in this study. Morphologically there is no aortic stenosis or aortic insufficiency. 2. The mitral inflow velocity within normal range, there is no mitral stenosis, there is mild mitral regurgitation, grade 1 diastolic dysfunction seen without tissue Doppler evidence of raised left atrial pressure. 3. There is mild tricuspid regurgitation seen, tricuspid regurgitant jet velocity insufficient for calculation of the right ventricular systolic pressure. CONCLUSION: 1. Mildly enlarged left atrium, normal left ventricular size, mild concentric left ventricular hypertrophy present, hyperdynamic left ventricular systolic function visually estimated ejection fraction over 65% with no obvious regional wall motion abnormality, grade 1 diastolic dysfunction seen, without Doppler evidence of raised left atrial pressure. 2. Mitral valve apparatus is not well visualized, dynamic left ventricular outflow track obstruction and systolic atrium motion of the mitral valve leaflets cannot be excluded. 3. Mild tricuspid regurgitation 4. No significant pericardial effusion noted.
[2016-09-25] MEDS ORDERED: PREDNISONE20 MG PO (09:34)
[2016-09-25] MEDS ORDERED: CARVEDILOL6.25 MG PO (09:35)
[2016-09-25] MEDS ORDERED: KEFLEX500 M1 PO (09:35)
[2016-09-25 10:00] VITALS: BP 162/85
--- NOTE | 2016-09-25 15:53 | DISCHARGE SUMMARY STANDARD ---
Demographics Admit date: 09/23/16 Discharge date: 09/25/16 History of present illness History of present illness 76 yr old female with history of dementia, hyperlipidemia and hypertension presented to the ED after suffering a syncopal event at her home. Daughter is present at time of exam and gives history due to patient's poor recall. Reports they had been out to lunch and returned home, her mother got out of the car and was walking away from the car while daughter was feeding her cat - she called her mother's name and got no response and turned to see her unresponsive in front of the car. After a brief moment, her eyes opened spontaneously, appeared very pale but slowly regained some level of alertness and was awake when EMS arrived. In ED found to have mild elevation of creatinine, mild elevation of CPK and was admitted for observation. On exam she reports left lower leg pain and cramping around her ankle. Typically followed by Dr Cordoba for primary care. Last visit about 3 weeks ago and labs were done for complaint of leg muscle pain/cramping in her thighs. Was started on fish oil and vitamin D replacement at that time. No recent antibiotics. + cough for the past 3 days and had a dose of Coricidin HBP at lunch today, prior to syncopal event. Followed by neurology at [facility] for progressive dementia that started about 3 years ago following the of her . She lives alone but her son lives next door and has good family support. Hospital Course Hospital Course: Ms. Sheppard was admitted for observation. Telemetry over 48 hours was without arrythmias. Echo with 60% EF. Carotids with 20-49% stenosis bilaterally. CPK initially elevated but trended down quickly, other cardiac enzymes negative. D- Dimer was elevated, lower extremity dopplers negative for clots. CT chest revealed central airway inflammation consistent with bronchitis, no pneumonic infiltrates. CT head on admission was significant only for acute ethmoid sinusitis. Appetite has been excellent during her stay. Good urine output. Losartan was held due to elevated creatinine and her BP was elevated late yesterday. Carvedilol was initiated at 6.25mg BID and she will FU with her PCP for further adjustments as needed to control her blood pressure. All skeletal xrays were negative for acute bony injury. This morning she felt well and ready for DC home. FU with PCP in about 2 weeks and continue FU with outpatient neurologist. Will start keflex PO and continue prednisone PO to complete treatment of sinusitis and bronchitis. Discharge diagnoses Problem List 1. Syncope 2. Acute kidney injury 3. Anemia 4. Acute ethmoidal sinusitis 5. Wheezing 6. HTN (hypertension) 7. Bronchitis, acute 8. Carotid stenosis, non-symptomatic Medications Medications: Discharge meds are as noted. Follow up Follow up in office in: 2 WEEKS with: Cole Cordoba at 0346
== END 2016-09-25 10:45 | disposition home or self-care (01) ==
LOC: ER 14:58 → 2ND 16:10 → ER 16:10 → 2ND 16:17
PROVIDERS: Emergency Medicine; Internal Medicine Adolescent Medicine
DX: R55 Syncope and collapse (principal); I10 Essential (primary) hypertension; D64.9 Anemia, unspecified; F03.90 Unspecified dementia, unspecified severity, without behavioral disturbance, psychotic disturbance, mood disturbance, and anxiety; J01.20 Acute ethmoidal sinusitis, unspecified; J20.9 Acute bronchitis, unspecified; I65.29 Occlusion and stenosis of unspecified carotid artery; R06.00 Dyspnea, unspecified; N17.9 Acute kidney failure, unspecified; M79.605 Pain in left leg; M79.604 Pain in right leg
CPT/HCPCS: G0378